=== PATIENT | male | born 1950 | race Caucasian/White ===

== ENCOUNTER 2023-08-27 09:23 | Emergency (ER) | payer SELFPAY ==
[2023-08-27 09:33] VITALS: BP 148/85
[2023-08-27 09:42] VITALS: BP 145/85
[2023-08-27 10:00] VITALS: BP 129/80
--- NOTE | 2023-08-27 10:04 | ED.GENMED ---
History of Present Illness
General
Chief Complaint: Chest Pain
Source: patient
Exam Limitations: none
Time Seen by Provider: 08/27/23 10:04
Nursing documentation reviewed up to this point in time: agreed with
Travel History
Have you had any contact with someone who has COVID-19?: No
Do you have any symptoms of coronavirus? Fever > 100 degrees, chills, cough, shortness of breath, sore throat, loss of taste or smell, muscle aches, or headache?: No
History of Present Illness
History of Present Illness:
73-year-old male with history of CAD, HTN, HLD, IN with stent x 2 in 2004, diverticulitis, colostomy reversal presents stating 6 p.m. last night, watching TV developed 'discomfort, not pain' mid sternal area 5/10, non radiating, no associated
symptoms. It has been constant, there throughout the night, took TUMS with no relief. Took BP this a.m.: 170/110 so came in for evaluation. 'I feel fine otherwise.'
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
Medications:
Metoprolol Tartrate 50 mg BID
Lisinopril 20 mg OD
Atorvastatin
Baby ASA
Pantoprazole
Past History
Past History
ED Past Medical History: CAD, HTN, Hypercholesterolemia, IN and Other (Diverticulitis, Iron def Anemia, PUD)
ED Past Surgical History: Cardiac (PTCA with stent 2004 and 2012) and Other (Colostomy with reversal, )
Social History
Tobacco: Non-smoker
Alcohol: Occasional
Personal:
Living: with family
Employment: Employed
Family History
Family History: CAD
Review of Systems
Review of Systems
Allergies reviewed?: Yes
All Other Systems: ROS reviewed and negative except as documented in HPI and ROS
Constitutional: Denies fever or fatigue
EENT: Denies sore throat
Respiratory: Denies cough or trouble breathing
Cardiac: Reports chest pain; Denies diaphoresis, palpitations or syncope
ABD/GI: Denies abdominal pain, nausea, vomiting or diarrhea
: Denies dysuria, difficulty voiding or urgency
Musculoskeletal: Reports no symptoms
Skin: Reports no symptoms
Neurological: Reports no symptoms
Phy Exam
Physical Exam
Physical Exam:
GENERAL: No acute distress. A&Ox3.
CONSTITUTIONAL: Afebrile.
EYES: clear, conjunctivae normal
ENMT: moist mucus membranes, Pharynx nl
RESPIRATORY: Regular respirations, nonlabored, lungs clear.
CARDIOVASCULAR: Regular rate and rhythm, no murmurs, no rubs.
GI: Soft, nontender, normal BS
MUSCULOSKELETAL: Moves with ease. Well perfused.
SKIN: Warm, dry, pink
PSYCH: Normal mood and affect. Well kept, interactive and appropriate
NEUROLOGIC: Awake, alert and oriented. No focal neurological deficits
Scores
Heart Score for Chest Pain Patients
STEMI patient?: No
History: Slightly or Non-Suspicious
ECG: Normal
Age: >/= 65 years
Risk Factors: >/= 3 Risk Factors or History of CAD
Troponin: </= Normal Limit
Heart Score for Chest Pain Patients: 4
Heart Score Risk: 20.3% MACE over next 6 weeks
Course
Orders/Labs/Results
Orders:
Orders
08/27/23 09:25
ECG [Electrocardiogram (*1)] Urgent
Reason for Study: Chest Pain
EKG- Treatment ONCE
08/27/23 09:44
Cardiac Monitoring- Treatment ONCE
EKG- Treatment ONCE
IV Insert/Care/Rem.- Treatment PRN
08/27/23 09:48
Complete Blood Count/With Diff Urgent
Comprehensive Metabolic Panel Urgent
Troponin I Urgent
Abnormal Lab Results
08/27/23
09:48
WBC 11.2 H 10^3/uL
(4.8-10.8)
Absolute Neuts (auto) 8.6 H 10^3/uL
(1.4-6.5)
Absolute Monos (auto) 0.8 H 10^3/uL
(0.1-0.6)
Neutrophils % 76.3 H %
(42.2-75.2)
Lymphocytes % 14.8 L %
(20.5-51.1)
Sodium 133 L mmol/L
(135-145)
Glucose 114 H mg/dl
(70-99)
08/27/23 09:48
08/27/23 09:48
Vital Signs
Initial and Last Documented VS:
Initial Vital Signs
Temp Pulse Resp BP Pulse Ox
98.8 F 60 18 148/85 98
08/27/23 09:33 08/27/23 09:33 08/27/23 09:33 08/27/23 09:33 08/27/23 09:33
Last Documented Vital Signs
Temp Pulse Resp BP Pulse Ox
98.8 F 58 13 115/74 92
08/27/23 09:33 08/27/23 11:15 08/27/23 11:15 08/27/23 11:00 08/27/23 11:15
MDM/Problems Addressed
Differential Diagnosis Includes:
ACS, GERD
MDM/Problems Addressed:
73-year-old male with history of CAD, HTN, HLD, IN with stent x 2 in 2004, diverticulitis, colostomy reversal presents stating 6 p.m. last night, watching TV developed 'discomfort, not pain' mid sternal area 5/10, non radiating, no associated
symptoms. It has been constant, there throughout the night, took TUMS with no relief. Took BP this a.m.: 170/110 so came in for evaluation. 'I feel fine otherwise.'
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
EKG: NSR
10:25 AM patient's blood pressure is now 129/80, heart rate 72
CBC normal
CMP normal
12:00 AM
Troponin is normal
Pt is pain free
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
Chronic conditions affecting care: HTN and CAD
*EKG
Interpreted by ED Provider?: Yes
EKG Intrepretation Date: 08/27/23
Interpretation: normal
Rate: normal
Rhythm: sinus
[place]: normal axis
Interval: normal interval
QRS Pattern: normal QRS
Ischemia: no ischemia
*Critical Care Note
Total Time (30-74mins, 75-104mins- exclusive of procedures): Not Applicable
ED Attending Note
-
Portions of this chart may have been created with voice recognition software.� Occasional wrong word or��sound alike� substitutions may have occurred due to the inherent limitations of voice recognition software.
Discharge Plan
Departure
Patient Disposition: Home (Routine Discharge)
Date of Disposition: 08/27/23
Time of Disposition: 12:13
Patient with high blood pressure during this ER visit?: No
Condition: Good
Discharge Problem:
Atypical chest pain
Instructions: Chest Pain That Is Not Caused by the Heart (DC), Acid Reflux and GERD in Adults (DC), Chest Pain DCA Follow Up
Prescriptions:
No Action
atorvastatin 80 MG tablet
80 mg PO QPM Qty: 90 3RF
aspirin 81 mg Tablet,Chewable
81 mg PO DAILY
metoprolol succinate 25 mg Tablet Extended Release 24 Hr
12.5 mg PO BID Qty: 60 0RF
pantoprazole [Protonix] [address] for susp in packet
40 mg PO Q12H Qty: 60 0RF
Rx Instructions:
take protonix 40 mg twice daily for 4-6 weeks, then once daily after that
Referrals:
Rustam Prescott MD [Active] - Keep scheduled appt
Alysa Dixon DO [Family Provider] -
Activity Restrictions/Additional Instructions:
As we discussed, nothing to indicate damage to your heart/heart attack in your workup here today.
Someone from the cardiology office will call you within the next 2 days to set up an appointment for more thorough cardiac evaluation.
Return here immediately for worsening chest pain, chest pain associated with sweating, nausea or vomiting, feeling lightheaded or feeling sicker in any way
Interventions
Interventions:
*Risk Screen - Suicide Last Done: 08/27/23 10:29
*Neglect/Abuse Screening Last Done: 08/27/23 10:29
*ED COVID-19 Vaccine History Last Done: 08/27/23 09:33
*Nursing Disposition Last Done: 08/27/23 12:35
ED- Cardiac Assessment Last Done: 08/27/23 10:29
Discharge Date and Time
Discharge Date/Time: 08/27/23 12:35
Print Language: ALBANIAN
[2023-08-27 10:06] LABS: % Basophils 0.5 % (0-2); % Eosinophils 1.3 % (0-6); % Immature Granulocytes 0.4 % (0-0.5); % Lymphocytes 14.8 % (20.5-51.1); % Monocytes 6.7 % (1.7-9.3); % Neutrophils 76.3 % (42.2-75.2); Absolute Basophils 0.1 10^3/uL (0-0.2); Absolute Eosinophils 0.2 10^3/uL (0-0.7); Absolute Lymphocytes 1.7 10^3/uL (1.2-3.4); Absolute Monocytes 0.8 10^3/uL (0.1-0.6); Absolute Neutrophils 8.6 10^3/uL (1.4-6.5); Hematocrit 43.7 % (39.0-52.0); Hemoglobin 14.5 g/dL (13.0-18.0); Mean Corp Hgb Conc. 33.2 g/dL (33.0-37.0); Mean Corpuscular Hgb 28.5 pg (27.0-31.0); Mean Platelet Volume 8.8 fL (7.4-10.4); Nucleated Red Blood Cells % 0 % (-); Platelet Count 316 10^3/uL (130-400); Red Blood Cell Count 5.08 10^6/uL (4.70-6.10); Red Cell Dist. Width 12.5 % (11.5-14.5); White Blood Cell Count 11.2 10^3/uL (4.8-10.8)
[2023-08-27 10:19] LABS: ALT (SGPT) 27 U/L (0-50); AST (SGOT) 30 U/L (17-59); Albumin 4.3 g/dl (3.5-5.0); Alkaline Phosphatase 96 U/L (38-126); Blood Urea Nitrogen 15 mg/dl (9-20); Calcium 9.8 mg/dl (8.4-10.2); Carbon Dioxide 24 mmol/L (22-30); Chloride 105 mmol/L (98-107); Glucose 114 mg/dl (70-99); Sodium 133 mmol/L (135-145); Total Bilirubin 0.8 mg/dl (0.2-1.3); Total Protein 7.1 g/dl (6.3-8.2); eGFR > 60.00
[2023-08-27 10:31] LABS: Troponin I < 0.012 ng/ml
[2023-08-27 11:00] VITALS: BP 115/74
== END 2023-08-27 12:35 | disposition home or self-care (01) ==
LOC: EMR 09:23
PROVIDERS: EMERGENCY PHYSICIAN Emergency Medicine; FAMILY PHYSICIAN Family Medicine
DX: R07.89 Other chest pain (principal); I25.10 Atherosclerotic heart disease of native coronary artery without angina pectoris; I10 Essential (primary) hypertension; E78.00 Pure hypercholesterolemia, unspecified; I25.2 Old myocardial infarction; K21.9 Gastro-esophageal reflux disease without esophagitis; Z82.49 Family history of ischemic heart disease and other diseases of the circulatory system; Z87.11 Personal history of peptic ulcer disease; Z95.5 Presence of coronary angioplasty implant and graft
CPT/HCPCS: 99283; 80053; 84484; 85025; 93005